=== PATIENT | male | born 1980 | race Caucasian/White ===

== ENCOUNTER 2016-07-28 14:59 | Emergency (ER) | payer OTHER ==
[~2016-07-28] VITALS: Ht 160 cm; Wt 78.8 kg
[2016-07-28 15:03] VITALS: TEMP 37.2; Ht 160 cm; Wt 78.8 kg
--- NOTE | 2016-07-28 16:22 | DIAGNOSTIC IMAGING REPORT ---
RIGHT WRIST 5 VIEWS CLINICAL HISTORY: Right wrist injury. FINDINGS: 5 views of the right wrist are obtained. No prior studies are available for comparison at the time of dictation. The skeletal structures are well mineralized. Marked soft tissue edema is present around the wrist and hand. There is a distracted fracture through the proximal pole of the scaphoid. There is also a complex distracted fracture of the hamate. There is dorsal tilt of the lunate. No additional fracture is clearly identified. IMPRESSION: 1. There is a distracted fracture through the proximal pole of the scaphoid. Orthopedic assessment is advised. 2. There is a complex and distracted fracture of the hamate. 3. No additional fracture is clearly identified. There is dorsal tilt of the lunate. Carpal dislocation is not excluded. 4. Marked soft tissue edema is present around the wrist and hand. Electronically signed by: Adama Jung M.D. 07/28/2016 4:20 PM Dictated Date/Time: 07/28/2016 4:13 PM
--- NOTE | 2016-07-28 16:59 | EMERGENCY ROOM VISIT NOTE ---
ED Visit Note First contact with patient: 15:08 CHIEF COMPLAINT: Right forearm injury HISTORY OF PRESENT ILLNESS: This 36-year-old [facility] male was sent here by [facility] for further evaluation of a right forearm/wrist fracture. A disc was sent along with the patient containing his x-rays. The patient denies any numbness and tingling in his fingers. He does admit that he had a prior fracture in one of the wrist bones 20 years ago. The patient denies any elbow pain. The patient is right-hand dominant. The patient's injury occurred today when he got his arm caught in a long splinter. REVIEW OF SYSTEMS: 6 system review was performed and was negative unless stated otherwise in history of present illness. PMH: The patient is healthy; there is no significant medical or surgical history. SOCIAL HISTORY: Patient lives with his family. The patient denies any tobacco or alcohol use PHYSICAL EXAM: Vital Signs: Were reviewed Reviewed Nurse's notes. GENERAL: 36- year-old white male appears in no acute distress. MENTAL STATUS: Alert and oriented 3. RIGHT FOREARM: There is an odd distribution of swelling which starts on the distal third of the forearm and goes into the dorsal aspect of the hand. There is a small abrasion noted on the hand but no deep lacerations noted. Did not assess range of motion of the wrist secondary to the patient's deformity. Radial pulses 2+. The patient is able to move his fingers without difficulty. Sensation is intact. EMERGENCY DEPARTMENT COURSE: The patient was evaluated. I offered the patient pain medication but he declined. I reviewed the disc that was sent with the patient. The images are diagnostically limiting. They do not include a navicular view. X-rays were ordered of the right wrist including navicular view. This was interpreted by the radiologist and myself. DIAGNOSTICS;RIGHT WRIST 5 VIEWS CLINICAL HISTORY: Right wrist injury. FINDINGS: 5 views of the right wrist are obtained. No prior studies are available for comparison at the time of dictation. The skeletal structures are well mineralized. Marked soft tissue edema is present around the wrist and hand. There is a distracted fracture through the proximal pole of the scaphoid. There is also a complex distracted fracture of the hamate. There is dorsal tilt of the lunate. No additional fracture is clearly identified. IMPRESSION: 1. There is a distracted fracture through the proximal pole of the scaphoid. Orthopedic assessment is advised. 2. There is a complex and distracted fracture of the hamate. 3. No additional fracture is clearly identified. There is dorsal tilt of the lunate. Carpal dislocation is not excluded. 4. Marked soft tissue edema is present around the wrist and hand. Electronically signed by: Adama Jung M.D. 07/28/2016 4:20 PM Dictated Date/Time: 07/28/2016 4:13 PM This was informed of the findings. Dr. Washburn was consulted. He visualized the x-rays and stated that he thought the navicular fracture was old. He stated we were to splint the patient and have him follow-up with Dr. Hood. Since the patient is self-pay the patient was placed back into the splint that he was wearing coming from [facility]. The patient was then discharged home in stable condition. DIAGNOSIS: Fracture of the right hamate. DISCHARGE INSTRUCTIONS AND TREATMENT: Ice and elevation to the right hand as much as possible over the next 24 hours. Ibuprofen 600 mg every 6 hours with food for pain. Keep arm in splint until evaluated by orthopedics. Call Dr. Hood Saturday morning for a follow-up appointment. When you are making the appointment make sure you tell them that you were seen in the emergency room on Saturday and was instructed by [facility] to schedule a follow-up with Dr. Hood Current/Historical Medications No Active Prescriptions or Reported Meds Allergies Coded Allergies: No Known Allergies (Unverified , 07/28/16) Vital Signs Date Time Temp Pulse Resp B/P Pulse Ox O2 Delivery O2 Flow Rate FiO2 07/28/16 15:03 37.2 85 16 145/93 100 Room Air Departure Information Prescriptions No Active Prescriptions or Reported Meds Referrals No Doctor, Assigned (PCP) Patient Instructions [facility]
[2016-07-28 17:14] VITALS: BP 156/84; PULSE 88; O2SAT 98
== END 2016-07-28 17:15 | disposition home or self-care (01) ==
LOC: C.EDB 15:03 → C.EDD 17:15
DX: S62.144A Nondisplaced fracture of body of hamate [unciform] bone, right wrist, initial encounter for closed fracture (principal); W31.89XA Contact with other specified machinery, initial encounter